=== PATIENT | male | born 1970 | race Caucasian/White ===

== ENCOUNTER → 2019-12-17 11:12 | Outpatient (CLI) | payer BC, SELFPAY ==
--- NOTE | ~2019-12-17 | US_ITS ---
EXAMINATION: US soft tissue head and neck DATE: 12/17/2019 11:30 INDICATION: Left cervical lymphadenopathy. TECHNIQUE: Multiple grayscale and Doppler ultrasound images of the region of concern at the lateral l eft neck were obtained. COMPARISON: None FINDINGS: At region concern is a 3.2 x 1.9 x 2.6 cm solid hypoechoic mass with intravascular flow on color Dopp ler. This position inferior to the angle of the mandible and abuts the inferior margin of glandular a ppearing tissue which could represent a submandibular or more likely the inferior margin of the parot id gland. IMPRESSION: 1. 3.2 x 1.9 x 2.6 cm solid mass at the region of concern. This could represent either enlarged lymph node suspicious for either lymphoma or metastatic disease or a mass associated with the submandibula r or parotid glands with differential including mixed salivary gland tumor, Warthin tumor, pleomorphi c adenoma or primary carcinoma. Recommend ultrasound-guided core needle biopsy. Reviewed, dictated and finalized at location A. IMPRESSION: 1. 3.2 x 1.9 x 2.6 cm solid mass at the region of concern. This could represent either enlarged lymph node suspicious for either lymphoma or metastatic diseas e or a mass associated with the submandibular or parotid glands with differenti al including mixed salivary gland tumor, Warthin tumor, pleomorphic adenoma or primary carcinoma. Recommend ultrasound-guided core needle biopsy.
== END ==
DX: R59.1 Generalized enlarged lymph nodes (principal); R22.1 Localized swelling, mass and lump, neck
CPT/HCPCS: 76536

== ENCOUNTER 2020-01-29 09:31 | Outpatient (CLI) | payer BC, SELFPAY ==
--- NOTE | ~2020-01-29 | US_ITS ---
EXAMINATION: US biopsy st neck thorax DATE: 01/29/2020 10:40 INDICATION: Left submandibular mass TECHNIQUE: A time-out was performed to verify the patient's name, date of , and procedure to be performed . The procedure and its benefits and risks were discussed with the patient. Risks specifically discus sed included bleeding and infection. The patient understood the risks and agreed to proceed. The neck was prepped and draped in the usual sterile manner. 3 mL 1% lidocaine was used for local anesthesia . 6 passes were made with a 25G needle into the lesion. Appropriate needle location was documented with continuous sonographic guidance. A sterile bandage was applied. There were no immediate compli cations. FINDINGS: Grayscale ultrasound images demonstrate biopsy needles advanced into a 3.1 x 1.7 cm solid hypoechoic mass in the left submandibular region. The mass abuts the inferior margin of the parotid and posterio r margin of the left submandibular gland. A couple tiny hyperechoic foci likely resulting from calcif ication within the mass. IMPRESSION: 1. Successful ultrasound-guided fine needle aspiration of a 3.1 x 1.7 cm left submandibular mass. Reviewed, dictated and finalized at location A.
== END 2020-01-29 09:32 | disposition home or self-care (01) ==
LOC: ANHIMG 09:41
PROVIDERS: PCP Family Medicine; Visit Provider Surgery
DX: R22.1 Localized swelling, mass and lump, neck (principal); C44.42 Squamous cell carcinoma of skin of scalp and neck
CPT/HCPCS: 20206; 76942; 88108; 88173; 88305; 88342